=== PATIENT | female | born 1945 | race African-American/Black ===

== ENCOUNTER 2017-05-31 21:43 | Inpatient (IN) | payer MEDICARE, MEDICAID ==
[~2017-05-31] VITALS: Ht 162.6 cm; Wt 78.0 kg
[2017-05-31] MEDS ORDERED: ACETAMINOPHEN 325MG TABLET PO ONE (23:00)
[2017-05-31] MEDS ORDERED: LEVOFLOXACIN 750MG PREMIX 150 ML IV ONE (23:00)
[2017-05-31] MEDS ORDERED: SODIUM CHLORIDE 0.9% 1000ML BAG (SEPSIS BOLUS) IV ONE (23:00)
[2017-06-01 00:01] LABS: BASOPHILS % 0.2 % (0.0-2.0); HEMATOCRIT. 39.5 % (36.0-48.0); HEMOGLOBIN. 13.3 g/dL (12.0-16.0); LYMPHOCYTES % 9.4 % (20.0-50.0); MEAN CORPUSCULAR HEMOGLOBIN 29.4 pg (28.0-32.0); MEAN CORPUSCULAR VOLUME 87.5 fL (81.0-99.0); MEAN PLATELET VOLUME 9.8 fl (7.4-10.4); MONOCYTES % 3.9 % (2.0-8.0); NEUTROPHILS % 86.5 % (40.0-76.0); PLATELET 159 x1000/uL (130-400); RED BLOOD CELL COUNT 4.51 mill/uL (4.2-5.4); RED CELL DISTRIBUTION WIDTH 15.1 % (11.6-14.6)
[2017-06-01 00:07] LABS: INR 1.4; PROTHROMBIN TIME 14.6 sec
[2017-06-01 00:20] LABS: AMMONIA 33 uMol/L (<32)
[2017-06-01 00:55] LABS: CARBON DIOXIDE 18 mEq/L (21-32); CHLORIDE 95 mEq/L (98-107); TROPONIN I 0.22 ng/mL (0.00-0.04)
[2017-06-01] MEDS ORDERED: POTASSIUM CHLORIDE 20MEQ TABLET SR PO ONE (01:00)
[2017-06-01] MEDS ORDERED: ASPIRIN 325MG EC TABLET PO ONE (01:00)
[2017-06-01 01:37] LABS: CLARITY URINE CLOUDY (CLEAR); COLOR URINE YELLOW (YELLOW); GLUCOSE URINE NEGATIVE (NEGATIVE); KETONES URINE 4+ (NEGATIVE); LEUKOCYTE ESTERASE URINE 2+ (NEGATIVE); NITRITE URINE POSITIVE (NEGATIVE); OCCULT BLOOD URINE 3+ (NEGATIVE); PROTEIN URINE 2+ (NEGATIVE); SPECIFIC GRAVITY URINE 1.019 (1.005-1.030)
[2017-06-01 06:00] VITALS: BP 106/69
[2017-06-01 08:00] VITALS: BP 112/67
[2017-06-01] MEDS ORDERED: SIMV20TA6 PO (08:59)
[2017-06-01] MEDS ORDERED: ATEN50TA PO (08:59)
[2017-06-01 09:51] VITALS: BP 112/67
[2017-06-01] MEDS ORDERED: DEXTROSE 5% WATER 1,000 ML IV SCH (10:00)
[2017-06-01 12:00] VITALS: BP 122/72
[2017-06-01] MEDS: ATENOLOL 50 MG TABLET PO SCH (12:00)
[2017-06-01] MEDS: CEFTRIAXONE 1 G PREMIX 50 ML IV SCH (12:06)
[2017-06-01] MEDS: SODIUM CHLORIDE 0.9% 1,000 ML IV SCH ×2 (12:06→22:39)
[2017-06-01] MEDS: ENOXAPARIN 40MG/0.4ML SYR SUBCUT SCH (12:06)
[2017-06-01] MEDS: TRAMADOL 50MG TABLET PO PRN ×2 (12:17→18:26)
[2017-06-01 15:14] LABS: CREATINE KINASE MB FRACTION 5.2 ng/mL (0.5-3.6)
[2017-06-01 15:15] LABS: T4 FREE 1.33 ng/dL (0.76-1.46)
[2017-06-01 15:59] LABS: HEMATOCRIT. 35.4 % (36.0-48.0); HEMOGLOBIN. 11.7 g/dL (12.0-16.0); MEAN CORPUSCULAR HEMOGLOBIN 29.3 pg (28.0-32.0); MEAN CORPUSCULAR VOLUME 88.3 fL (81.0-99.0); MEAN PLATELET VOLUME 10.3 fl (7.4-10.4); PLATELET 143 x1000/uL (130-400); RED CELL DISTRIBUTION WIDTH 14.9 % (11.6-14.6)
[2017-06-01 16:00] VITALS: BP 92/50
[2017-06-01 16:04] LABS: CARBON DIOXIDE 21 mEq/L (21-32); CHLORIDE 104 mEq/L (98-107)
[2017-06-01 16:10] LABS: TROPONIN I 0.83 ng/mL (0.00-0.04)
[2017-06-01] MEDS ORDERED: POTASSIUM CHLORIDE 20MEQ/PACKET PO NR (16:30)
[2017-06-01] MEDS ORDERED: MEDICATION NOT ON FORMULARY EA (Simvastatin 1 TAB) PO SCH (17:00)
[2017-06-01 17:21] LABS: PLATELET ESTIMATE NORMAL
[2017-06-01 20:00] VITALS: BP 118/62
[2017-06-01] MEDS: ATORVASTATIN CALCIUM 10MG TABLET PO SCH (20:36)
[2017-06-01] MEDS ORDERED: POTASSIUM CHLORIDE 20MEQ TABLET SR PO NR (22:30)
[2017-06-02] VITALS: BP 118/66
[2017-06-02 01:05] LABS: CREATINE KINASE MB FRACTION 6.4 ng/mL (0.5-3.6)
[2017-06-02 02:20] LABS: TROPONIN I 0.78 ng/mL (0.00-0.04)
[2017-06-02 04:00] VITALS: BP 109/63
[2017-06-02 07:42] LABS: CREATINE KINASE MB FRACTION 5.4 ng/mL (0.5-3.6); PREALBUMIN 7.8 mg/dL (20.0-40.0)
[2017-06-02 07:44] LABS: TROPONIN I 0.57 ng/mL (0.00-0.04)
[2017-06-02 07:45] LABS: VITAMIN B12 SERUM 895 pg/mL (211-911)
[2017-06-02 08:00] VITALS: BP 110/68
[2017-06-02 08:20] LABS: CHLORIDE 108 mEq/L (98-107)
[2017-06-02 08:26] LABS: CARBON DIOXIDE 22 mEq/L (21-32)
[2017-06-02] MEDS: ATENOLOL 50 MG TABLET PO SCH (09:00)
[2017-06-02] MEDS: ASPIRIN 81MG TABLET PO SCH (10:21)
[2017-06-02] MEDS: SODIUM CHLORIDE 0.9% 1,000 ML IV SCH (10:22)
[2017-06-02] MEDS: ENOXAPARIN 40MG/0.4ML SYR SUBCUT SCH (10:23)
[2017-06-02 12:00] VITALS: BP 114/60
[2017-06-02] MEDS: CEFTRIAXONE 1 G PREMIX 50 ML IV SCH (12:14)
[2017-06-02 16:00] VITALS: BP 112/63
[2017-06-02 16:06] LABS: HEMATOCRIT 37.2 % (36.0-48.0); HEMOGLOBIN 12.4 g/dL (12.0-16.0); MEAN CORPUSCULAR HEMOGLOBIN 29.4 pg (28.0-32.0); MEAN CORPUSCULAR VOLUME 88.2 fL (81.0-99.0); PLATELET 154 x1000/uL (130-400); RED BLOOD CELL COUNT 4.22 mill/uL (4.2-5.4); RED CELL DISTRIBUTION WIDTH 14.9 % (11.6-14.6)
[2017-06-02 20:00] VITALS: BP 137/75
[2017-06-02] MEDS: ATORVASTATIN CALCIUM 10MG TABLET PO SCH (21:14)
[2017-06-03] VITALS: BP 118/73
[2017-06-03] MEDS: SODIUM CHLORIDE 0.9% 1,000 ML IV SCH ×2 (02:01→11:37)
[2017-06-03 04:00] VITALS: BP 131/70
[2017-06-03 08:00] VITALS: BP 126/68
[2017-06-03] MEDS: CEFTRIAXONE 1 G PREMIX 50 ML IV SCH (08:17)
[2017-06-03] MEDS: ASPIRIN 81MG TABLET PO SCH (08:17)
[2017-06-03] MEDS: ENOXAPARIN 40MG/0.4ML SYR SUBCUT SCH (08:18)
[2017-06-03] MEDS: ATENOLOL 50 MG TABLET PO SCH (08:18)
[2017-06-03] MEDS: TRAMADOL 50MG TABLET PO PRN (08:35)
[2017-06-03 12:00] VITALS: BP 112/67
[2017-06-03 13:46] VITALS: BP 112/67
[2017-06-03] MEDS ORDERED: LINEZOLID 600MG TABLET PO SCH (16:00)
== END 2017-06-03 16:40 | disposition home health service (06) | DRG 871 ==
LOC: ER 22:28 → EDBEDREQSVC 23:14 → 7WST 06-01 02:05 → EDBEDREQ 06-01 02:18 → ENRESERV 06-01 04:25
PROVIDERS: ADMIT Family Medicine; ATTEND Family Medicine
DX: A41.9 Sepsis, unspecified organism (principal); G93.40 Encephalopathy, unspecified; N39.0 Urinary tract infection, site not specified; E46 Unspecified protein-calorie malnutrition; E87.1 Hypo-osmolality and hyponatremia; Z74.01 Bed confinement status; R32 Unspecified urinary incontinence; G35 Multiple sclerosis; E87.6 Hypokalemia; L89.319 Pressure ulcer of right buttock, unspecified stage; L89.329 Pressure ulcer of left buttock, unspecified stage; E86.0 Dehydration; E78.00 Pure hypercholesterolemia, unspecified; E78.5 Hyperlipidemia, unspecified; Z79.899 Other long term (current) drug therapy; Z82.49 Family history of ischemic heart disease and other diseases of the circulatory system; Z68.29 Body mass index [BMI] 29.0-29.9, adult
CPT/HCPCS: 36415; 51702; 70450; 71010; 80048; 80053; 80061; 81001; 82140; 82550; 82553; 82607; 83036; 83605; 83735; 83880; 84134; 84439; 84443; 84484; 85025; 85027; 85379; 85610; 86850; 86900; 87040; 87077; 87086; 87186; 92610; 93005; 93306; 93970; 96365; 96375; 99285; C1893; J0696; J1650; J1956; J7030; J7040; J7050; J7070; A4315